=== PATIENT | male | born 1955 | race Caucasian/White ===

== ENCOUNTER 2018-09-17 20:24 | Emergency (ER) | payer OTHER ==
[2018-09-17 22:52] LABS: URINE BLOOD (Dip) POC Negative (NEGATIVE); URINE GLUCOSE (Dip) POC Negative (NEGATIVE); URINE KETONES (Dip) POC Trace (NEGATIVE); URINE LEUKOCYTE EST (Dip) POC Negative (NEGATIVE); URINE NITRITE (Dip) POC Negative (NEGATIVE); URINE TOTAL PROTEIN POC Negative (NEGATIVE)
[2018-09-17 22:52] LABS: URINE PH (Dip) POC 5.5 (5.0-8.5)
== END 2018-09-17 23:44 | disposition home or self-care (01) ==
LOC: E/R 23:44
DX: I10 Essential (primary) hypertension (principal)
CPT/HCPCS: 81003; 93005; 99282